=== PATIENT | female | born 2005 | race Caucasian/White ===

== ENCOUNTER 2024-12-06 21:13 | Emergency (ER) | payer BC, SELFPAY ==
[2024-12-06 21:39] VITALS: BP 126/63; PULSE 76; RESP 16; TEMP 36.9; O2SAT 100; BMI 25.6
[2024-12-06 22:57] LABS: MANUAL DIFF FLAG NO
[2024-12-06 22:58] LABS: Hematocrit 33.5 % (37.0-47.0); Hemoglobin 12.5 g/dl (12.0-16.0); Imm Gran Abs Auto 0.03 X10*3/uL (0.00-0.03); Imm Gran Pct Auto 0.3 % (0.0-0.4); Lymphocytes Absolute Auto 2.4 X10*3/uL (1.2-4.9); Mean Corpuscular HGB Conc 37.3 g/dl (31.0-35.0); Mean Corpuscular Hemoglobin 31.3 pg (27.0-33.0); Mean Corpuscular Volume 84.0 fL (80.0-98.0); NRBC Abs Auto 0.000 X10*3/uL (0.0-0.012); NRBC Pct Auto 0.0 /100WBC (0.0-0.2); Platelet Count 263 X10*3/uL (160-400); Red Blood Count 3.99 X10*6/uL (4.20-5.50); White Blood Count 9.9 X10*3/uL (4.8-10.8)
[2024-12-06 23:17] LABS: Alanine Aminotransferase 7 U/L (0-31); Albumin Level 4.5 g/dL (3.5-5.0); Alkaline Phosphatase 49 U/L (39-117); Anion Gap 12 (12-20); Aspartate Amino Transferase 15 U/L (5-31); Blood Urea Nitrogen 5 mg/dL (9-16); Calcium 8.9 mg/dL (8.4-10.2); Carbon Dioxide 22 mmol/L (22-29); Chloride 109 mmol/L (96-108); Creatinine Clr Calc Pharmacy 125.6; Estimated Glomerular Filt Rate > 60; Potassium 3.3 mmol/L (3.3-5.1); Sodium 140 mmol/L (135-145); Total Protein 6.7 g/dL (6.5-8.0)
[2024-12-07 00:13] VITALS: BP 127/71; PULSE 65; RESP 18; TEMP 36.7; O2SAT 99
[2024-12-07 00:15] LABS: COVID-19 Test Negative (Negative); IDNOW Serial# 6674DD1D
--- OUTSIDE RECORDS SUMMARY | 2024-12-07 01:25 | XMS_ITS | Clinical Summary ---
Author Organization [facility] Address [address] [place] [address] Care Team Providers Care Die Turner Name Role Phone Steffanie Woods MD Primary Care Provider [phone] Source Comments IMPORTANT WARNING: This document is intended for the use of the person [facility] to which it is addressed and may contain information that is privilegedand confidential, the disclosure of which is governed by applicable law. If youare not the intended recipient, or the employee or agent responsible to deliverit to the intended recipient, you are notified that any dissemination,distribution or copying of this information is STRICTLY PROHIBITED. If you havereceived this communication in error, please immediately notify us by telephoneat [phone] and return this original message or destroy it.[facility] Allergies No known active allergies Medications No known medications Active Problems Problem Noted Date Diagnosed Date History of strabismus surgery 11/22/2014 Overview (11/22/2014): BMRc 6.0mm Esotropia 09/26/2014 Overview (01/03/2015): ICD10 Update Resolved Problems Problem Noted Date Diagnosed Date Resolved Date Ptosis of eyelid 05/23/2014 11/21/2014 Overview (05/23/2014): Mild ptosis may be residual. Social History Tobacco Use Types Packs/Day Years Used Date Smoking Tobacco: Never Alcohol Use Standard Drinks/Week Comments No 0 (1 standard drink = 0.6 oz pur e alcohol) Comments No Sex and Gender Information Value Date Recorded Sex Assigned at Not on file Legal Sex Female 1:43 PM PST Gender Identity Not on file Sexual Orientation Not on file Last Filed Vital Signs Vital Sign Reading Time Taken Comments Blood Pressure 120/81 11/22/2014 1:45 PM PDT Pulse 90 11/22/2014 2:45 PM PDT Temperature 36.3 C (97.3 F) 11/22/2014 1:24 PM PDT Respiratory Rate 14 11/22/2014 1:30 PM PDT Oxygen Saturation 99% 11/22/2014 2:45 PM PDT Inhaled Oxygen Concentration - - Weight 35.6 kg (78 lb 7.7 oz) 11/22/2014 11:01 A M PDT Height 132.1 cm (4' 4 ) 11/22/2014 11:01 AM PDT Body Mass Index 20.41 11/22/2014 11:01 AM PDT Plan of Treatment Health Maintenance Due Date Last Done Comments COVID-19 Vaccine(Tracks prim zak and booster doses, not sup/immunocomp) (2023- season) [address] [place] [address] Care Teams Die Turner Relationship Specialty [place] [address] [place] [address] PCP - General Pediatrics 05/16/14 Additional Source Comments Request medical records from [facility] directly by faxing your request to . Please call for additional information and assistance.[facility]
--- OUTSIDE RECORDS SUMMARY | 2024-12-07 01:25 | XMS_ITS | Encounter Summary ---
Author Organization [facility] Address [address] [place] [place] [address] Care Team Providers Care Hull Inspector Name Role Phone Purnima Torres (Kisha) D.ONickie Primar y Care Provider Johnny Carpenter M.D., M.D. Primary Care Provi lauren Unavailable Reason for Visit * Reason Comments PERSON UNDER INVESTIGATION Encounter Details Date Type Department Care Team (Late st Contact Info) Description 08/28/2021 Orders Only PMED [address] [place], [place] [id number] Waldo Anne), M.D. [address] [place] [address] COVID-19 DISEASE, PERSON UNDER INVESTIGATION (Primary Dx) Social History Tobacco Use Types Packs/Day Years Used Date Smoking Tobacco: Never Smokeless Tobacco: Never Alcohol Use Standard Drinks/Week Comments Not Asked 0 (1 standard drink = 0.6 oz pur e alcohol) Substance Use Types Use/Week Comments Not Asked Sex and Gender Information Value Date Recorded Sex Assigned at Not on file Gender Identity Not on file Sexual Orientation Not on file documented as of this encounter Plan of Treatment Not on file documented as of this encounter Visit Diagnoses Diagnosis COVID-19 DISEASE, PERSON UNDER INVESTIGATION- Primary documented in this encounter Care Teams Hull Inspector Relationship Specialty Start Date End Date Purnima Torres), D.O. [address] [place] [phone] PCP - General 10/08/17 05/25/22 Johnny Carpenter M.D., [place] [address] PCP - General 12/09/22 documented as of this encounter
--- OUTSIDE RECORDS SUMMARY | 2024-12-07 01:25 | XMS_ITS | Clinical Summary ---
Author Organization [facility] Address [address] [place] [address] Care Team Providers Care Boiler Mechanic Name Role Phone Johnny Carpenter M.D., M.D. Primary Care Provi lauren Unavailable Source Comments NOTE: The information displayed by Care Everywhere is extracted from the complete medical record and may not identify all current or past patient conditions.[facility] Allergies Active Allergy Reactions Criticality Noted Date Comments Penicillins Class 01/11/2019 Medications Medication Sig Dispensed Refills Start Date End Date Status tretinoin (RETIN-A) 0.025 % Top CreaIndications:AC NE Apply to affected area(s) daily at bedtime 20 g 3 08/25/2023 08/24/2025 Active Clindamycin Phosphate (CLEOCIN) 1 % Top SolnIndications:AC NE Apply to affected area(s) daily 60 mL 3 08/25/2023 08/24/2025 Active FLUoxetine (PROZAC) 10 mg Oral CapIndications:MED ICATION REFILL Take 1 capsule by mouth daily Need to take it with 20 mg capsule 100 capsule 1 04/26/2024 04/26/2026 Active FLUoxetine (PROZAC) 20 mg Oral CapIndications:MED ICATION REFILL Take 1 capsule by mouth daily Need to take with 10 mg capsule 100 capsule 1 04/26/2024 04/26/2026 Active Active Problems Patient Care Coordination No te Formatting of this note migh t be different from the original. APPROVED BY [employer]OXI Problem Noted Date Diagnosed Date HX OF STRABISMUS SURGERY 09/03/2016 SCOLIOSIS, UNSPECIFIED TYPE AND SITE 11/06/2014 Resolved Problems Problem Noted Date Diagnosed Date Resolved Date LEFT EYELID PTOSIS 05/08/2014 7 LEFT ESOTROPIA 05/08/2014 09/03/2016 HEALTHY CHILD 12/04/2012 06/10/2019 Encounters Date Type Department Care Team Description 11/15/2024 TELEPHONE - / PSYCH CALL CENTER [facility] [address] [place] [address] Psychiatry, Generic Provider - INTAKE (INITIAL VISIT) 11/12/2024 Telephone [facility] [address] [place] [address] Johnny Carpenter), MSadiq 11/11/2024 11:10 AM PDT Office Visit [facility] [address] [place] [address] Jhonny Carpenter), MSadiq ROUTINE ADULT HEALTH CHECK UP EXAM; SCREENING FOR STI; UNSPECIFIED ANXIETY; ELECTRONIC NICOTINE DELIVERY SYSTEM USER; CANNABIS USE COUNSELING 11/11/2024 TELEPH[facility] [address] [facility] [address] [address] Bang Moyer ([facility]), M.F.T. SCREENING 11/11/2024 Abstract [facility] [address] [place] [address] Flaca Peralta M.D., MSadiq ADMINISTRATIVE ENCOUNTER FOR OUTSIDE RECORDS REVIEW from Last 3 Months Immunizations Name Administration Dates Next Due COVID-19 mRNA LNP-S, bivalen t PF 12yrs-adult ([employer]), 30mcg/0.3mL 01/23/2022 COVID-19 mRNA, LNP-S, PF ([email or web address]) PURPLE CAP 04/01/2021,07/24/2020,07/03/2020 DTaP (Diphtheria, Tetanus, a cellular Pertussis) 07/14/2008,04/17/2005 [id number] (Diphtheria, Te tanus, acellular Pertussis, Hepatitis B, Polio) 2004,2004,2004 HAV ped (Hepatitis A) 10/14/2005 HAV ped/adol 2 dose darci (Hepatitis A) 06/02/2006 HBV ped/adol, 3dose darci (Hepatitis B) 2004 HIB PRP-OMP (Haemophilus influenzae b) 6,2004,2004 HPV9 (Human Papillomavirus) 9 valent 08/19/2016, 09/07/2015 INF (Influenza attenuated vi bell, intranasal) 01/21/2012,01/06/2010,01/14/2009,11/05 INF 2-49yrs (flumist quadriv alent) (influenza attenuated virus, live, intranasal) 01/26/2015,01/18/2014,01/22/2013 INF [id number] (Influenza H1N1- 09 live attenuated, intranasal) 02/03/2009 INFS Pres Free 6mos-Adult (F lulaval Quadrivalent) (Influenza) 01/23/2022,01/03/2018,03/26/2017 INFS pres free 6mos-adult (F luarix quadrivalent) (influenza) 02/15/2020,01/11/2019 INFS pres free 6mos-adult (F lucelvax quadrivalent) (influenza) 04/01/2021 INFS pres free 6mos-adult (F lulaval trivalent) (influenza) 04/26/2024 INFS pres free 6mos-adult (F luzone quadrivalent) (influenza) 04/26/2023 INFs (Influenza split virus ). 02/21/2011 INFs 3yrs-adult (FLUZONE Peyman drivalent) (Influenza) 01/16/2016 INFs pres free 6-35m (Influenza) 007,02/11/2006,02/28/2005,01/04 MENACWY (MENVEO) (MENINGOCOC NUBIA OLIGOSACCHARIDE ACWY-135) 09/17/2020,09/07/2015 MMR (Measles, Mumps, Rubella) 07/14/2008, 006 PCV (Pneumococcal conjugate, pneumonia) 04/17/2005,2004,2004,04/2004 DILLAN-IPV (Polio, Inactivated virus) 07/14/2008 Tdap (ADACEL) (Tetanus, diph theria, acellular pertussis) 09/07/2015 BARBARA (Varicella, chickenpox) 07/14/2008, 6 Social History Tobacco Use Types Packs/Day Years Used Date Smoking Tobacco: Never Smokeless Tobacco: Never Tobacco Cessation:Counseling Given: Not Answered Alcohol Use Standard Drinks/Week Comments Not Asked 0 (1 standard drink = 0.6 oz pur e alcohol) Substance Use Types Use/Week Comments Yes Cannabis - Smoke Sex and Gender Information Value Date Recorded Sex Assigned at Not on file Gender Identity Not on file Sexual Orientation Not on file Last Filed Vital Signs Vital Sign Reading Time Taken Comments Blood Pressure 103/59 11/11/2024 11:23 AM PDT Pulse 91 11/11/2024 11:23 AM PDT Temperature 36.8 C (98.2 F) 11/11/2024 11:23 AM PDT Respiratory Rate 15 11/11/2024 11:23 AM PDT Oxygen Saturation 98% 11/11/2024 11:23 AM PDT Inhaled Oxygen Concentration - - Weight 72.8 kg (160 lb 7.9 oz) 11/11/2024 11:23 AM PDT Height 166.5 cm (5' 5.55 ) 11/11/2024 11:23 AM P DT Body Mass Index 26.26 11/11/2024 11:23 AM PDT Plan of Treatment Health Maintenance Due Date Last Done Comments IMM INFLUENZA (6 MO AND OLDE R) (#1) 12/05/2024 04/26/2024, 04/26/2023, 01/23/2022, Additional history exists IMM DTAP,TDAP,TD (42 DAYS-12 0 YRS) (7 - Td or Tdap) 09/06/2025 09/07/2015, 07/14/2008, 04/17/2005, Additional history exists CHLAMYDIA SCREENING 16-24 YRS 11/11/2025 11/11/2024 IMM HPV (9-26 YRS) Completed 08/19/2016, 09/07/2015 Procedures Procedure Name Priority Date/Time Associated Diagnosis Comments CHLAMYDIA + GC, URINE, HEIDE Routine 11/11/2024 1:03 PM PDT SCREENING FOR STI TSH Routine 11/11/2024 12:30 PM PDT UNSPECIFIED ANXIETY CBC NO DIFFERENTIAL Routine 11/11/2024 1 2:30 PM PDT ROUTINE ADULT HEALTH CHECK UP EXAM ALT Routine 11/11/2024 12:30 PM PDT ROUTINE ADULT HEALTH CHECK UP EXAM CREATININE Routine 11/11/2024 12:30 PM PDT ROUTINE ADULT HEALTH CHECK UP EXAM LIPID PANEL Routine 11/11/2024 12:30 PM PDT ROUTINE ADULT HEALTH CHECK UP EXAM HEMOGLOBIN A1C, SCREENING OR PREDIABETIC MONITORING Routine 11/11/2024 12:30 PM PDT ROUTINE ADULT HEALTH CHECK UP EXAM HCV ANTIBODY W REFLEX TO VIRAL LOAD AND GENOTYPE Routine 11/11/2024 12:30 PM PDT SCREENING FOR STI HEPATITIS B VIRUS SURFACE ANTIGEN (HBSAG) W REFLEX TO VIRAL LOAD Routine 11/11/2024 12:30 PM PDT SCREENING FOR STI SYPHILIS ANTIBODY SCREEN, IMMUNOASSAY Routine 11/11/2024 12:30 PM PDT SCREENING FOR STI HIV SCREEN (HIV AG, HIV 1, 2 AB), QUALITATIVE Routine 11/11/2024 12:30 PM PDT SCREENING FOR STI from Last 3 Months Results * CHLAMYDIA + GC, URINE, HEIDE (11/11/2024 1:03 PM PDT) CHLAMYDIA TRACHOMATIS, URINE, QUALITATIVE, HEIDE Negative Negative [facility] NEISSERIA GONORRHOEAE, URINE, QUALITATIVE, HEIDE Negative Negative [facility] Comment: Positive: Target DNA detected. Consider testing for HIV and other STDs. Negative: Target DNA not detected. Repeat if clinically indicated. Invalid: Unable to determine the presence or absence of target DNA. Repeat if clinically indicated. Note: For positive Neisseria gonorrhoeae result, the treating provider is responsible for reporting to the public health department. Test of cure for chlamydial infection is not recommended, except for individuals, who should be tested approximately 4 or more weeks after therapy completion. Interpret test of cure results accordingly. URINE 11/11/2024 1:03 PM PDT Narrative [facility] - 11/11/2024 11:45 PM PDT [facility] ACCN: [id number] Johnny Carpenter M.D. VIROLOGY Performing Organization Address [facility] de Phone Number [facility] [address] [place] [address] * HEPATITIS B VIRUS SURFACE ANTIGEN (HBSAG) W REFLEX TO VIRAL LOAD (11/11/2024 12:30 PM PDT) HEP B SURFACE AG Nonreactive Nonreactive [facility] BLOOD / Unknown 11/11/2024 1 2:30 PM PDT Narrative [facility] - 11/11/2024 6:01 PM PDT [facility] ACCN: [id number] Johnny Carpenter M.D. IMMUNOLOGY Performing Organization Address [facility] de Phone Number [facility] [address] [place] [address] * LIPID PANEL (11/11/2024 12:30 PM PDT) CHOLESTEROL 178 <=199 mg/dL [facility] Comment: Please review results carefully for any changes to reference ranges (indicated by R superscript). Deployment of new chemistry analyzers is occurring across [facility] through 2026. TRIGLYCERIDE 80 <=149 mg/dL [facility] Comment: Please review results carefully for any changes to reference ranges (indicated by R superscript). Deployment of new chemistry analyzers is occurring across [facility] through 2026.Note that if triglycerides (TG) are sufficiently high, then direct LDL (if TG>1300 mg/dL) or HDL (if TG>2000 mg/dL) measurements may not be valid. HDL 74 >=40 mg/dL [facility] Comment: Please review results carefully for any changes to reference ranges (indicated by R superscript). Deployment of new chemistry analyzers is occurring across [facility] through 2026. LDL CALCULATED 89 <=99 mg/dL [facility] CHOLESTEROL/HIGH DENSITY LIPOPROTEIN 2.4 <=3.9 [facility] Comment:See [employer]Net for more information. CHOLESTEROL, NON-HDL 104 mg/dL [facility] Comment:NonHDL targets are 3 0 mg/dL higher than LDL targets. BLOOD / Unknown 11/11/2024 1 2:30 PM PDT Narrative [facility] - 11/11/2024 7:03 PM PDT [facility] ACCN: [id number] FASTING? YES Johnny Barrios) Jayden Freire SERUM CHEMI STRY Performing Organization Address [facility] de Phone Number [facility] [address] [place] [address] * HIV SCREEN (HIV AG, HIV 1, 2 AB), QUALITATIVE (11/11/2024 12:30 PM PDT) HIV 1+2 AB+[id number] AG, CLA Nonreactive Nonreactive [facility] Comment: Please see below for interpretive criteria: NON-REACTIVE: HIV Antigen and antibodies not detected; the patient remains susceptible - patients at behavioral risk should receive counseling. If early infection is suspected, consider repeat testing in 6-8 weeks. REACTIVE: HIV-1/2 Confirmatory Test to Follow. The HIV-1/2 confirmatory test result is needed in order to determine whether or not the patient is truly positive for HIV-1 or HIV-2. BLOOD / Unknown 11/11/2024 1 2:30 PM PDT Narrative [facility] - 11/11/2024 6:00 PM PDT [facility] ACCN: [id number] Johnny Carpenter M.D. IMMUNOLOGY Performing Organization Address [facility] Co de Phone Number [facility] [address] [place] [address] * HCV ANTIBODY W REFLEX TO VIRAL LOAD AND GENOTYPE (11/11/2024 12:30 PM PDT) HEPATITIS C VIRUS AB,SER,QL Nonreactive Nonreactive [facility] Comment: Please see below for interpretive criteria NON-REACTIVE: Antibodies to HCV not detected. A non-reactive response may be seen up to 9 weeks after the onset of infection. EQUIVOCAL: Antibodies to HCV may or may not be present. If clinically warranted, consider obtaining an additional specimen in 6-9 weeks for re-testing. REACTIVE: Presumptive evidence of antibodies to HCV. Viral load +/- genotype testing will automatically be performed. BLOOD / Unknown 11/11/2024 1 2:30 PM PDT Narrative [facility] - 11/11/2024 6:01 PM PDT [facility] ACCN: [id number] Johnny Barrios) Jayden Freire IMMUNOLOGY Performing Organization Address [facility] de Phone Number [facility] [address] [place] [address] * (ABNORMAL) HEMOGLOBIN A1C, SCREENING OR PREDIABETIC MONITORING (11/11/2024 12:30 PM PDT) HGBA1C% 4.4(L) 4.6 - 5.6 % [facility] Comment: HbA1c may be misleadingly low and unsuitable to diagnose diabetes in certain clinical settings. A1c may be particularly difficult to interpret when glycemic control is rapidly deteriorating (gestational diabetes, type 1 diabetes onset) or with conditions that affect red blood cell lifespan (e.g., significant anemia, G6PD deficiency, hemoglobinopathies, HIV, etc.). In such circumstances, GLUCOSE, FASTING or 2 HR POST 75 GM PO GLUCOSE may be used for diagnosis. For women, GLUCOSE TOLERANCE TEST, 3 HR GESTATIONAL DIABETES; or GLUCOSE TOLERANCE TEST, 2 HR, GESTATIONAL DIABETES is preferred. BLOOD / Unknown 11/11/2024 1 2:30 PM PDT Narrative [facility] - 11/11/2024 5:24 PM PDT [facility] ACCN: [id number] Johnny Barrios) Jayden Freire SERUM CHEMI STRY Performing Organization Address [facility] de Phone Number [facility] [address] [place] [address] * SYPHILIS ANTIBODY SCREEN, IMMUNOASSAY (11/11/2024 12:30 PM PDT) TREPONEMA PALLIDUM AB, EIA Nonreactive Nonreactive [facility] BLOOD / Unknown 11/11/2024 1 2:30 PM PDT Narrative [facility] - 11/11/2024 6:00 PM PDT [facility]N: [id number] Johnny Carpenter M.D. IMMUNOLOGY Performing Organization Address [facility] Co de Phone Number [facility] [address] [place] [address] * ALT (11/11/2024 12:30 PM PDT) ALT 9 <=41 U/L [facility] Comment: Please review results carefully for any changes to reference ranges (indicated by R superscript). Deployment of new chemistry analyzers is occurring across [facility] through 2026. BLOOD / Unknown 11/11/2024 1 2:30 PM PDT Narrative [facility] - 11/11/2024 7:03 PM PDT [facility]N: [id number] Johnny Carpenter M.D. SERUM CHEMI STRY Performing Organization Address [facility] de Phone Number [facility] [address] [place] [address] * TSH (11/11/2024 12:30 PM PDT) TSH 2.11 0.35 - 4.00 mcIU/mL [facility] BLOOD / Unknown 11/11/2024 1 2:30 PM PDT Narrative [facility] - 11/11/2024 6:05 PM PDT [facility]N: [id number] Johnny Carpenter M.D. ENDOCRINOLO GY Performing Organization Address [facility] Co de Phone Number [facility] [address] [place] [address] * CREATININE (11/11/2024 12:30 PM PDT) [facility] CREATININE 0.71 0.57 - 1.11 mg/dL [facility] Comment: Please review results carefully for any changes to reference ranges (indicated by R superscript). Deployment of new chemistry analyzers is occurring across [facility] through 2026. EGFR, CREATININE-BASED FORMULA (CKD-EPI 2020) >120 >=60 mL/min/BS A [facility] Comment: GFR estimate is by the CKD-EPI 2020 equation which uses age, sex, and serum creatinine. GFR estimate is less reliable if on dialysis or if acute kidney injury. Additional advice for the provider is available in Renal Failure Risk Assessment below. CKD Categorization by GFR & ACR (urine Albumin/Creatinine Ratio) GFR >3 months ACR <30(A1) ACR 30-<300(A2) ACR 300+(A3) >=90 CKD1 A2 or * CKD1 A3 60-<90 CKD2 A2 or * CKD2 A3 45-<60 CKD3a A1 or * CKD3a A2 CKD3 A3 30-<45 CKD3b A1 CKD3b A2 CKD3 A3 15-<30 CKD4 A1 CKD4 A2 CKD4 A3 <15 CKD5 A1 CKD5 A2 CKD5 A3 * or may label a bnormal kidney function or p roteinuria as appropriate. BLOOD / Unknown 11/11/2024 1 2:30 PM PDT Narrative [facility] - 11/11/2024 7:03 PM PDT [facility] ACCN: [id number] Johnny Carpenter M.D. SERUM CHEMI STRY [facility] [address] [place] [address] * CBC NO DIFFERENTIAL (11/11/2024 12:30 PM PDT) Pathologist [facility] WBC'S AUTO 8.4 4.0 - 11.0 x1000/mcL [facility], CLINICAL PATHOLOGY [facility] RBC, AUTO 4.98 3.70 - 5.20 Mill/mcL [facility], [facility] PATHOLOGY [facility] HGB 15.2 11.5 - 16.0 g/dL [facility], [facility] HCT, AUTO 43.8 35.0 - 47.0 % [facility], [facility] MCV 88.0 81.0 - 99.0 fL [facility], [facility] PATHOLOGY [facility] MCH 30.5 25.0 - 35.0 pg/cell [facility], CLINICAL PATHOLOGY [facility] MCHC 34.7 30.0 - 35.0 g/dL [facility], [facility] PATHOLOGY [facility] RDW, BLOOD 12.5 11.5 - 16.0 % [facility], [facility] PATHOLOGY [facility] PLATELETS, AUTOMATED COUNT [id number] 130 - 400 x1000/mcL [facility], [facility] BLOOD / Unknown 11/11/2024 1 2:30 PM PDT Narrative [facility], [facility] - [place] - 11/11/2024 11:36 PM PDT [facility]N: [id number] Johnny Carpenter M.D. HEMATOLOGY [facility], [facility] [address] [place] [address] from Last 3 Months Care Teams Boiler Mechanic Relationship Specialty Start Date End Date Johnny Carpenter), [place] [address] PCP - General 12/09/22
--- NOTE | 2024-12-07 01:39 | ED_ITS ---
HPI - General Adult General Chief complaint: Nausea/Vomiting/Diarrhea Stated complaint: Vomiting/abdominal pain Time Seen by Provider: 12/06/24 23:27 Source: patient Limitations: no limitations History of Present Illness ED Provider: Genesis Blanco PA-C HPI narrative: 19-year-old otherwise healthy female presents with nausea vomiting diarrhea x3 days. Patient states she has trialed from [place] to attend school. Denies sick contacts with similar symptoms. Denies travel out of the country, recent hospitalization or use of antibiotics. Patient having vague abdominal discomfort that she can not describe. No known fever, no concurrent cough or cold symptoms. Related Data Previous Rx's ?Medication ?Instructions ?Recorded dicyclomine 20 mg tablet 20 mg PO TID PRN abdominal p ain 12/07/24 #10 tabs ondansetron 4 mg disintegrating 4 mg PO Q8H PRN nausea and 12/07/24 tablet vomiting #10 tabs Allergies Allergy/AdvReac Type Severity Reaction Status Date / Time Penicillins Allergy Hives Verified 12/06/24 21:44 Review of Systems 2 Review of Systems: Yes all other systems are reviewed and are negative Constitutional: Constitutional: Denies fatigue and Denies fever(s) Cardiovascular: Cardiovascular: Denies chest pain and Denies dyspnea Respiratory: Respiratory: Denies cough and Denies dyspnea Gastrointestinal: Gastrointestinal: Reports GI cramping, Reports diarrhea, Reports nausea and Reports vomiting Endocrine: Endocrine: Denies fatigue PMFSH Past Medical History Attestation statement: The following information was validated with the patient. Social History Social History Smoked in Last 30 Days: Yes Use of substances other than those prescribed or required for medical reasons: Yes Substance Use Type: Marijuana Advance Directives: No Advance Directives Information Provided: Yes Patient : No Physical Exam ED Vital Signs: Vital Signs - 24 hr 12/06/24 21:39 12/07/24 00:13 12/07/24 01:42 Temperature 98.5 F 98.0 F 97.7 F Pulse Rate 76 65 70 Respiratory Rate 16 18 18 Blood Pressure 126/63 127/71 106/64 Pulse Oximetry 100 99 100 Oxygen Delivery Method Room Air Room Air Room Air BMI result Body Mass Index 25.6 Const Other: Alert well-appearing Orientation/consciousness: patient oriented x3 Resp Effort & Inspection: normal respiratory effort Cardio Other: Normal peripheral perfusion GI Other: Abdomen is soft, nondistended nontender no guarding with deep palpation Skin Other: Warm dry no rash Neuro General: patient oriented x3, gait normal, no focal motor deficits and CN's II- XI intact bilaterally Psych Other: Cooperative Medications Administered Discontinued Medications Generic Name Dose Route Start Last Admin Trade Name Alyssa PRN Reason Stop Dose Admin Dicyclomine HCl 20 mg 12/07/24 00:29 12/07/24 00:50 Dicyclomine Hcl 10 Mg Capsule PO 12/07/24 00:30 20 mg ONCE ONE Administration Sodium Chloride 1,000 mls @ 999 mls/hr 12/06/24 23:45 12/07/24 00:51 Ns IV 12/07/24 00:45 Infused .Q1H1M PARKER Infusion Ondansetron HCl 4 mg 12/06/24 23:35 12/06/24 23:46 Ondansetron Hcl 4 Mg/2 Ml Vial IVPUSH 12/06/24 23:36 4 mg ONCE ONE Administration Ondansetron HCl 4 mg 12/07/24 01:33 12/07/24 01:40 Ondansetron Hcl 4 Mg/2 Ml Vial IVPUSH 12/07/24 01:34 4 mg ONCE ONE Administration Medical Decision Making Medical Decision Making [facility] Narrative: 19-year-old otherwise healthy female presents with nausea vomiting diarrhea x3 days. Patient states she has trialed from [place] to attend school. Denies sick contacts with similar symptoms. Denies travel out of the country, recent hospitalization or use of antibiotics. Patient having vague abdominal discomfort that she can not describe. No known fever, no concurrent cough or cold symptoms. No chronic issues History: Per patient I have considered the following differential diagnoses: Traveler's diarrhea, C diff, viral gastroenteritis, diverticulitis Plan: This is likely viral gastroenteritis, her abdominal exam was benign, her screening labs are unremarkable. She also has no risk factors for C diff or traveler's diarrhea. We will be giving supportive care and adding on a COVID test. I have independently reviewed the following tests: Labs: No leukocytosis, not anemic, no electrolyte abnormality, COVID negative, not Differential Diagnosis Differential Diagnoses: The differential diagnosis associated with the presentation includes See medical decision making Admission/Observation Consideration of admission/observation: Escalation of care including admission/observation considered Not applicable Lab Data [facility] Lab Attestation statement: I reviewed the patient's lab results. 12/06/24 22:54 12/06/24 22:54 Labs: Lab Results 12/06/24 12/06/24 Range/Units 22:54 23:41 WBC 9.9 (4.8-10.8) X10*3/uL RBC 3.99 L (4.20-5.50) X10*6/uL Hgb 12.5 (12.0-16.0) g/dl Hct 33.5 L (37.0-47.0) % MCV 84.0 (80.0-98.0) fL MCH 31.3 (27.0-33.0) pg MCHC 37.3 H (31.0-35.0) g/dl RDW 12.2 (11.0-16.0) % Plt Count 263 (160-400) X10*3/uL MPV 9.1 L (9.4-12.3) fL Immature Gran % (Auto) 0.3 (0.0-0.4) % Neut % (Auto) 65.7 (45-73) % Lymph % (Auto) 24.0 (20-40) % Ballard % (Auto) 8.5 (2-11) % Eos % (Auto) 0.8 (0-4) % Baso % (Auto) 0.7 (0-2) % Lymph # (Auto) 2.4 (1.2-4.9) X10*3/uL Ballard # (Auto) 0.8 (0.1-1.2) X10*3/uL Eos # (Auto) 0.1 (0.0-0.4) X10*3/uL Baso # (Auto) 0.1 (0.0-0.2) X10*3/uL Abs Immat Gran (auto) 0.03 (0.00-0.03) X10*3/uL Absolute Neuts (auto) 6.5 (2.0-8.3) x10*3/uL Absolute Nucleated RBC 0.000 (0.0-0.012) X10*3/uL Nucleated RBC % (auto) 0.0 (0.0-0.2) /100WBC Sodium 140 (135-145) mmol/L Potassium 3.3 (3.3-5.1) mmol/L Chloride 109 H (96-108) mmol/L Carbon Dioxide 22 (22-29) mmol/L Anion Gap 12 (12-20) BUN 5 L (9-16) mg/dL Creatinine 0.70 (0.5-1.4) mg/dL Estim Creat Clear Calc 125.6 Estimated GFR > 60 Random Glucose 94 (60-115) mg/dL Calcium 8.9 (8.4-10.2) mg/dL Total Bilirubin 0.7 (0.0-1.0) mg/dL AST 15 (5-31) U/L ALT 7 (0-31) U/L Alkaline Phosphatase 49 (39-117) U/L Total Protein 6.7 (6.5-8.0) g/dL Albumin 4.5 (3.5-5.0) g/dL Beta HCG, Quant < 2 mIU/mL COVID-19 (HEIDE) Negative (Negative) COVID-19 Clin Com See Note Discharge Plan Discharge Clinical Impression: Gastroenteritis Patient Disposition: Home, Self-Care Instructions: Gastroenteritis (ED) Additional Instructions: All of your screening labs were normal including a COVID swab. You likely have viral gastroenteritis. See home care instructions. Viral illnesses are self- limiting. Uses Zofran as needed for nausea, use the dicyclomine as needed for abdominal cramping/diarrhea. Follow up with the Health Services as needed. Return precautions for onset of the of severe abdominal pain, fever, or worsening symptoms. Prescriptions: New ondansetron 4 mg tablet,disintegrating 4 mg PO Q8H PRN (Reason: nausea and vomiting) Qty: 10 0RF dicyclomine 20 mg tablet 20 mg PO TID PRN (Reason: abdominal pain) Qty: 10 0RF Print Language: Cypriot
[2024-12-07 01:42] VITALS: BP 106/64; PULSE 70; RESP 18; TEMP 36.5; O2SAT 100
[2024-12-07 02:10] VITALS: BP 106/64; PULSE 70; RESP 18; TEMP 36.5; O2SAT 100
== END 2024-12-07 02:12 | disposition home or self-care (01) ==
PROVIDERS: Physician Assistant Medical; Emergency Provider Emergency Medicine
DX: K52.9 Noninfective gastroenteritis and colitis, unspecified (principal)
CPT/HCPCS: 36415; 80053; 84702; 85025; 87635; 96361; 96374; 96376; 99284; J2405

== ENCOUNTER 2024-12-20 08:26 | Emergency (ER) | payer BC, OTHER, SELFPAY ==
--- NOTE | ~2024-12-20 | CT_ITS ---
EXAMINATION: CT HEAD WITHOUT IV CONTRAST HISTORY: headache AM vomiting. TECHNIQUE: Unenhanced helical CT of the head was performed per standard departmental protocol. Coronal and sagittal reformats of the head were also evaluated. One or more of the following techniques was used for dose reduction: Automated exposure control, adjustment of the mA and/or kV according to patient size, use of iterative reconstruction technique. DLP: 712 mGy-cm COMPARISON: There are no prior studies available for comparison. FINDINGS: BRAIN: The brain parenchyma is unremarkable. There is normal lyn/white differentiation. The ventricular system is normal in size and configuration. There is no mass effect or midline shift. No intra- or extra-axial fluid collections are identified. SINUSES: The visualized paranasal sinuses are clear. The mastoid air cells and middle ear cavities are well pneumatized. ORBITS: The visualized orbits are unremarkable. BONES/SOFT TISSUES: The extracranial soft tissues are unremarkable. The calvarium is intact. No suspicious lytic or sclerotic lesions. CT/CT head/brain wo IV con IMPRESSION: Unremarkable unenhanced head CT. Electronically signed by: Vicente Saini MD 12/20/2024 10:45 AM EDT
[2024-12-20 08:39] VITALS: BP 107/58; PULSE 65; RESP 16; TEMP 36.1; O2SAT 100; BMI 24.6
[2024-12-20 09:02] LABS: MANUAL DIFF FLAG NO
[2024-12-20 09:04] LABS: Appearance Urine Clear; Glucose Urine UA Negative (Negative); PH 6.0 (5.0-9.0); Specific Gravity - Urine >= 1.030 (1.005-1.025); UMIC TRIGGER UACC YES
[2024-12-20 09:05] LABS: Hematocrit 38.0 % (37.0-47.0); Hemoglobin 13.7 g/dl (12.0-16.0); Imm Gran Abs Auto 0.03 X10*3/uL (0.00-0.03); Imm Gran Pct Auto 0.3 % (0.0-0.4); Lymphocytes Absolute Auto 1.1 X10*3/uL (1.2-4.9); Mean Corpuscular HGB Conc 36.1 g/dl (31.0-35.0); Mean Corpuscular Hemoglobin 30.6 pg (27.0-33.0); Mean Corpuscular Volume 85.0 fL (80.0-98.0); NRBC Abs Auto 0.000 X10*3/uL (0.0-0.012); NRBC Pct Auto 0.0 /100WBC (0.0-0.2); Platelet Count 270 X10*3/uL (160-400); Red Blood Count 4.47 X10*6/uL (4.20-5.50); White Blood Count 10.8 X10*3/uL (4.8-10.8)
--- NOTE | 2024-12-20 09:25 | PC.NURSE ---
Pt A&O X4 VSS Pt states she has been vomiting every AM. No pain. Also Diarrhea daily X1. No other complaints
[2024-12-20 09:28] LABS: Alanine Aminotransferase 11 U/L (0-31); Albumin Level 5.2 g/dL (3.5-5.0); Alkaline Phosphatase 61 U/L (39-117); Anion Gap 14 (12-20); Aspartate Amino Transferase 19 U/L (5-31); Blood Urea Nitrogen 7 mg/dL (9-16); Calcium 9.8 mg/dL (8.4-10.2); Carbon Dioxide 24 mmol/L (22-29); Chloride 107 mmol/L (96-108); Creatinine Clr Calc Pharmacy 120.4; Estimated Glomerular Filt Rate > 60; Magnesium 2.0 mg/dL (1.6-2.6); Potassium 3.6 mmol/L (3.3-5.1); Sodium 141 mmol/L (135-145); Total Protein 7.8 g/dL (6.5-8.0)
--- NOTE | 2024-12-20 09:36 | ED.NAVMDI ---
HPI - Nausea/Vomiting/Diarrhea General Chief complaint: Nausea/Vomiting/Diarrhea Stated complaint: Nausea/vomiting Time Seen by Provider: 12/20/24 09:13 Source: patient Mode of arrival: ambulatory Limitations: no limitations History of Present Illness ED Provider: GAGANDEEP SOUZA Narrative: 19 yo female with no sig PMH who is a [employer] student. She reports illness of n/v and one diarrhea episode a day about a week ago that resolved. At that time no travel, abx use, sick contacts. She notes it did go away but then has been back again for the last few days. She has n/v and throwing up green bile in the AM. She denies any food ingestions, anyone else vomiting. She has no pain. She went to the [facility] yesterday and they obtained a stool sample. She reports no hx of this. She does smoke THC daily but has not vomited from it in the past. She is not on any medications and was not started on pepcid/PPI. She has no prior abdominal surgeries. She notes her mom is a award clerk and is demanding head CT to look for signs of ICP causing her symptoms. There are no neuro deficits. There is no head trauma. MD elicited complaint: nausea, vomiting and diarrhea Onset (ago): week(s) (2) Description of vomiting: bilious Description of diarrhea: watery Associated nausea: Yes Associated abdominal pain: No Severity: moderate Exacerbating factors: other (morning time) Relieving factors: none Context: marijuana use Associated symptoms: loss of appetite and nausea/vomiting Related Data Previous Rx's ?Medication ?Instructions ?Recorded dicyclomine 20 mg tablet 20 mg PO TID PRN abdominal pain 12/07/24 #10 tabs ondansetron 4 mg disintegrating 4 mg PO Q8H PRN nausea and 12/07/24 tablet vomiting #10 tabs famotidine 20 mg tablet (Pepcid) 20 mg PO DAILY abdominal 12/20/24 discomfort #14 tabs ondansetron 4 mg disintegrating 4 mg PO Q8H PRN nausea and 12/20/24 tablet vomiting #20 tabs Allergies Allergy/AdvReac Type Severity Reaction Status Date / Time Penicillins Allergy Hives Verified 12/20/24 08:41 Review of Systems Review of Systems: Constitutional : No Fever, No Chills, No Fatigue ENT/Mouth : No sore throat, No Rhinorrhea Eyes: No Eye Pain, No Swelling, No Redness Cardiovascular : No Chest Pain, No SOB, No Dyspnea on Exertion Respiratory : No Cough, No Sputum Gastrointestinal : pos Nausea, pos Vomiting, pos Diarrhea, No abdominal Pain Genitourinary : No Dysuria, No Urinary Frequency, No Hematuria, Musculoskeletal : No joint pain, No Myalgias, No Joint Swelling Skin : No Skin Lesions, No rash Neuro : No Weakness, No Numbness, No Dizziness, no Headache All other systems reviewed and are negative Gastrointestinal: Gastrointestinal: Reports nausea PMFSH Past Medical History Attestation statement: The following information was validated with the patient. Source: old records reviewed Medical History (Updated 12/20/24 @ 11:38 by Arelis Degroot DO) No pertinent past medical history Social History Social History Substance Use Type: Marijuana Advance Directives: No Advance Directives Information Provided: Yes Physical Exam Vital Signs: Vital Signs: Last Vital Signs Temp 98.5 F 12/20/24 11:18 Pulse 84 12/20/24 11:18 Resp 16 12/20/24 11:18 BP 132/75 12/20/24 11:18 Pulse Ox 100 12/20/24 11:18 O2 Del Method Room Air 12/20/24 11:18 BMI result Body Mass Index 24.6 Appearance: Alert. Oriented X3. No acute distress. Eyes: Pupils equal, round and reactive to light. ENT: Pharynx normal. Neck: Normal inspection. Neck supple. CVS: Normal heart rate and rhythm. Pulses normal. Respiratory: No respiratory distress. Breath sounds normal. Abdomen: Soft and nontender. No sharp's sign Skin: Skin warm and dry. Normal skin color. Normal skin turgor. Extremities: No lower extremity edema. Neuro: Oriented X 3. No motor deficit. No sensory deficit. Medications Administered Discontinued Medications Generic Name Dose Route Start Last Admin Trade Name Freq PRN Reason Stop Dose Admin Diphenhydramine HCl 25 mg 12/20/24 09:14 12/20/24 09:40 Diphenhydramine Hcl 50 Mg/Ml Vial IVPUSH 12/20/24 09:15 25 mg ONCE ONE Administration Lactated Ringer's 1,000 mls @ 999 mls/hr 12/20/24 09:14 12/20/24 10:50 Lr IV 12/20/24 10:14 Infused .Q1H1M ONE Infusion Metoclopramide HCl 10 mg 12/20/24 09:14 12/20/24 09:42 Metoclopramide Hcl 10 Mg/2 Ml Vial IVPUSH 12/20/24 09:15 10 mg ONCE ONE Administration Medical Decision Making Medical Decision Making [facility] Narrative: healthy 19 yo female here with intemittent AM vomiting and nausea but no pain and really one loose stool a day. Her abdomen is benign doubt appy or biliary colic. She has stool study pending already. Will obtain CT scan of head rule out ICP as the cause of her symptoms. She is afebrile and not toxic appearing. Could be GERD, THC induced, dehydration, , viral syndrome. Differential Diagnosis Differential Diagnoses: The differential diagnosis associated with the presentation includes THC induced emesis, dehydration, Admission/Observation Consideration of admission/observation: Escalation of care including admission/observation considered feels better tolerating PO Lab Data [facility] Lab Attestation statement: I reviewed the patient's lab results. 12/20/24 08:53 12/20/24 08:53 Labs: Lab Results 12/20/24 12/20/24 Range/Units 08:53 08:58 WBC 10.8 (4.8-10.8) X10*3/uL RBC 4.47 (4.20-5.50) X10*6/uL Hgb 13.7 (12.0-16.0) g/dl Hct 38.0 (37.0-47.0) % MCV 85.0 (80.0-98.0) fL MCH 30.6 (27.0-33.0) pg MCHC 36.1 H (31.0-35.0) g/dl RDW 12.3 (11.0-16.0) % Plt Count 270 (160-400) X10*3/uL MPV 9.2 L (9.4-12.3) fL Immature Gran % (Auto) 0.3 (0.0-0.4) % Neut % (Auto) 82.7 H (45-73) % Lymph % (Auto) 10.3 L (20-40) % Mercer % (Auto) 5.7 (2-11) % Eos % (Auto) 0.4 (0-4) % Baso % (Auto) 0.6 (0-2) % Lymph # (Auto) 1.1 L (1.2-4.9) X10*3/uL Mercer # (Auto) 0.6 (0.1-1.2) X10*3/uL Eos # (Auto) 0.0 (0.0-0.4) X10*3/uL Baso # (Auto) 0.1 (0.0-0.2) X10*3/uL Abs Immat Gran (auto) 0.03 (0.00-0.03) X10*3/uL Absolute Neuts (auto) 9.0 H (2.0-8.3) x10*3/uL Absolute Nucleated RBC 0.000 (0.0-0.012) X10*3/uL Nucleated RBC % (auto) 0.0 (0.0-0.2) /100WBC Sodium 141 (135-145) mmol/L Potassium 3.6 (3.3-5.1) mmol/L Chloride 107 (96-108) mmol/L Carbon Dioxide 24 (22-29) mmol/L Anion Gap 14 (12-20) BUN 7 L (9-16) mg/dL Creatinine 0.67 (0.5-1.4) mg/dL Estim Creat Clear Calc 120.4 Estimated GFR > 60 Random Glucose 83 (60-115) mg/dL Calcium 9.8 D (8.4-10.2) mg/dL Magnesium 2.0 (1.6-2.6) mg/dL Total Bilirubin 1.1 H (0.0-1.0) mg/dL AST 19 (5-31) U/L ALT 11 (0-31) U/L Alkaline Phosphatase 61 (39-117) U/L Total Protein 7.8 (6.5-8.0) g/dL Albumin 5.2 H (3.5-5.0) g/dL Lipase 26 (8-78) U/L Beta HCG, Quant < 2 mIU/mL Urine Color Dark Yellow Urine Appearance Clear Urine pH 6.0 (5.0-9.0) Ur Specific [place] >= 1.030 H (1.005-1.025) Urine Protein 100 (2+) H (Neg-Trace) mg/dL Urine Glucose (UA) Negative (Negative) mg/dL Urine Ketones >=160 (Negative) mg/dL Urine Blood Moderate (2+) H (Negative) Urine Nitrite Negative (Negative) Ur Leukocyte Esterase Trace H (Negative) Urine RBC 3-5 H (0-2) /HPF Urine WBC 0-5 (0-5) /HPF Ur Squamous Epith Cells 3-5 (0-2) /HPF Urine Bacteria None Seen (None Seen) Hyaline Casts 3-5 (0-2) /LPF Independent Interpretation I performed an independent interpretation of an: CT Scan (normal ) Radiology Impression Discussion of test interpretation with radiology: I have reviewed the radiologist's reading. Prescription Management I considered prescription management with: Other Discharge Plan Discharge Clinical Impression: Nausea & vomiting Patient Disposition: Home, Self-Care Instructions: Acute Nausea and Vomiting (ED) Additional Instructions: return for worsening symptoms bland diet for 72 hours after eating must remain upright for [address] head was normal you had trace blood in your urine but it was only 3-5 per HPF would repeat in 1 week with your doctor FINDINGS: BRAIN: The brain parenchyma is unremarkable. There is normal lyn/white differentiation. The ventricular system is normal in size and configuration. There is no mass effect or midline shift. No intra- or extra-axial fluid collections are identified. SINUSES: The visualized paranasal sinuses are clear. The mastoid air cells and middle ear cavities are well pneumatized. ORBITS: The visualized orbits are unremarkable. BONES/SOFT TISSUES: The extracranial soft tissues are unremarkable. The calvarium is intact. No suspicious lytic or sclerotic lesions. CT/CT head/brain wo IV con IMPRESSION: Unremarkable unenhanced head CT. Prescriptions: New famotidine [Pepcid] 20 mg tablet 20 mg PO DAILY Qty: 14 0RF ondansetron 4 mg tablet,disintegrating 4 mg PO Q8H PRN (Reason: nausea and vomiting) Qty: 20 0RF No Action ondansetron 4 mg tablet,disintegrating 4 mg PO Q8H PRN (Reason: nausea and vomiting) Qty: 10 0RF dicyclomine 20 mg tablet 20 mg PO TID PRN (Reason: abdominal pain) Qty: 10 0RF Stand Alone Forms: Work/School Release Print Language: Mohawk
[2024-12-20] MEDS: Lactated Ringers 1,000 ML 999 ML IV (09:40)
[2024-12-20 10:33] LABS: Lipase 26 U/L (8-78)
[2024-12-20 11:18] VITALS: BP 132/75; PULSE 84; RESP 16; TEMP 36.9; O2SAT 100
--- OUTSIDE RECORDS SUMMARY | 2024-12-20 11:26 | XMS_ITS | Clinical Summary ---
Author Organization [facility] Address [address] [place] [address] Care Team Providers Care Store Keeper Name Role Phone Steffanie Woods MD Primary Care Provider [phone] Source Comments IMPORTANT WARNING: This document is intended for the use of the person [facility] to which it is addressed and may [...] error, please immediately notify us by telephoneat [phone] and return this original message or destroy it.[facility] Allergies No known active allergies Medications No [...] prim zak and booster doses, not sup/immunocomp) () 12/05/[address] [place] [address] [facility] Address: [address] [address] Care Teams Store Keeper Relationship Specialty [place] [address] [place] [address] PCP - General Pediatrics 05/16/14 Additional Source Comments Request medical records from [facility] directly by faxing your request to . Please call for additional information and assistance.[facility]
--- OUTSIDE RECORDS SUMMARY | 2024-12-20 11:26 | XMS_ITS | Clinical Summary ---
Author Organization [facility] Address [address] [place] [address] Care Team Providers Care Heat Engineering Teacher Name Role Phone Johnny Carpenter M.D., M.D. Primary Care Provi lauren Unavailable Source Comments NOTE: The information displayed by Care Everywhere is extracted from the complete medical record and may not identify all current or past patient conditions.[facility] Allergies Active Allergy Reactions Criticality [...] - / PSYCH CALL CENTER [facility] [address] [place] [address] Psychiatry, Generic Provider - INTAKE (INITIAL VISIT) 11/12/2024 Telephone [facility] [address] [place] [address] Johnny Carpenter), MSadiq 11/11/2024 11:10 AM PDT Office Visit [facility] [address] [place] [address] Johnny Carpenter), MSadiq ROUTINE ADULT HEALTH CHECK UP EXAM; SCREENING FOR STI; UNSPECIFIED ANXIETY; ELECTRONIC NICOTINE DELIVERY SYSTEM USER; CANNABIS USE COUNSELING 11/11/2024 TELEPH[facility] - / [facility] [address] [address] [address] Bang Moyer ([facility]), M.F.T. SCREENING 11/11/2024 Abstract [facility] [address] [place] [address] Flaca Peralta M.D., MSadiq ADMINISTRATIVE ENCOUNTER FOR OUTSIDE RECORDS REVIEW from Last 3 Months Immunizations Name Administration Dates Next Due COVID-19 mRNA LNP-S, bivalen t PF 12yrs-adult ([facility]), 30mcg/0.3mL 01/23/2022 COVID-19 mRNA, LNP-S, PF ([facility]) PURPLE CAP 04/01/2021,07/24/2020,07/03/2020 DTaP (Diphtheria, Tetanus, a cellular Pertussis) 07/14/2008,04/17/2005 [id number] (Diphtheria, Te tanus, acellular Pertussis, Hepatitis B, Polio) 2004,2004,2004 HAV ped (Hepatitis A) 10/14/2005 HAV ped/adol 2 dose darci (Hepatitis A) 06/02/2006 HBV ped/adol, 3dose darci (Hepatitis B) 2004 HIB PRP-OMP (Haemophilus influenzae b) 6,2004,2004 HPV9 (Human Papillomavirus) 9 valent 08/19/2016, 09/07/2015 INF (Influenza attenuated vi bell, intranasal) 01/21/2012,01/06/2010,01/14/2009,11/05 INF 2-49yrs (flumist quadriv alent) (influenza attenuated virus, live, intranasal) 01/26/2015,01/18/2014,01/22/2013 INF D2I3-78 (Influenza H1N1- 09 live attenuated, intranasal) 02/03/2009 [...] CHLAMYDIA TRACHOMATIS, URINE, QUALITATIVE, HEIDE Negative Negative [facility] NEISSERIA GONORRHOEAE, URINE, QUALITATIVE, HEIDE Negative Negative [facility] Comment: Positive: Target DNA detected. Consider [...] accordingly. URINE 11/11/2024 1:03 PM PDT Narrative [facility] - 11/11/2024 11:45 PM PDT [facility] ACCN: [id number] Johnny Carpenter M.D. VIROLOGY Performing Organization Address [facility] de Phone Number [facility] [address] [place] [address] * HEPATITIS B VIRUS SURFACE ANTIGEN (HBSAG) W REFLEX TO VIRAL LOAD (11/11/2024 12:30 PM PDT) HEP B SURFACE AG Nonreactive Nonreactive [facility] BLOOD / Unknown 11/11/2024 1 2:30 PM PDT Narrative [facility] - 11/11/2024 6:01 PM PDT [facility] ACCN: [id number] Johnny Carpenter M.D. IMMUNOLOGY Performing Organization Address [facility] de Phone Number [facility] [address] [place] [address] * LIPID PANEL (11/11/2024 12:30 PM PDT) CHOLESTEROL 178 <=199 mg/dL [facility] Comment: Please review results carefully for any changes to reference ranges (indicated by R superscript). Deployment of new chemistry analyzers is occurring across [facility] through 2026. TRIGLYCERIDE 80 <=149 mg/dL [facility] Comment: Please review results carefully for any changes to reference ranges (indicated by R superscript). Deployment of new chemistry analyzers is occurring across [facility] through 2026.Note that if triglycerides (TG) are sufficiently high, then direct LDL (if TG>1300 mg/dL) or HDL (if TG>2000 mg/dL) measurements may not be valid. HDL 74 >=40 mg/dL [facility] Comment: Please review results carefully for any changes to reference ranges (indicated by R superscript). Deployment of new chemistry analyzers is occurring across [facility] through 2026. LDL CALCULATED 89 <=99 mg/dL [facility] CHOLESTEROL/HIGH DENSITY LIPOPROTEIN 2.4 <=3.9 [facility] Comment:See LabNet for more information. CHOLESTEROL, NON-HDL 104 mg/dL [facility] Comment:NonHDL targets are 3 0 mg/dL higher than LDL targets. BLOOD / Unknown 11/11/2024 1 2:30 PM PDT Narrative [facility] - 11/11/2024 7:03 PM PDT [facility] ACCN: [id number] FASTING? YES Johnny Barrios) Jayden Freire SERUM CHEMI STRY Performing Organization Address [facility] de Phone Number [facility] [address] [place] [address] * HIV SCREEN (HIV AG, HIV 1, 2 AB), QUALITATIVE (11/11/2024 12:30 PM PDT) HIV 1+2 AB+[id number] AG, CLA Nonreactive Nonreactive [facility] Comment: Please see below for interpretive [...] Unknown 11/11/2024 1 2:30 PM PDT Narrative [facility] - 11/11/2024 6:00 PM PDT [facility] ACCN: [id number] Johnny Carpenter M.D. IMMUNOLOGY Performing Organization Address [facility] Co de Phone Number [facility] [address] [place] [address] * HCV ANTIBODY W REFLEX TO VIRAL LOAD AND GENOTYPE (11/11/2024 12:30 PM PDT) HEPATITIS C VIRUS AB,SER,QL Nonreactive Nonreactive [facility] Comment: Please see below for interpretive criteria [...] Unknown 11/11/2024 1 2:30 PM PDT Narrative [facility] - 11/11/2024 6:01 PM PDT [facility] ACCN: [id number] Johnny Barrios) Jayden Freire IMMUNOLOGY Performing Organization Address [facility] de Phone Number [facility] [address] [place] [address] * (ABNORMAL) HEMOGLOBIN A1C, SCREENING OR PREDIABETIC MONITORING (11/11/2024 12:30 PM PDT) HGBA1C% 4.4(L) 4.6 - 5.6 % [facility] Comment: HbA1c may be misleadingly low [...] Unknown 11/11/2024 1 2:30 PM PDT Narrative [facility] - 11/11/2024 5:24 PM PDT [facility] ACCN: [id number] Johnny Barrios) Jayden Freire SERUM CHEMI STRY Performing Organization Address [facility] de Phone Number [facility] [address] [place] [address] * SYPHILIS ANTIBODY SCREEN, IMMUNOASSAY (11/11/2024 12:30 PM PDT) TREPONEMA PALLIDUM AB, EIA Nonreactive Nonreactive [facility] BLOOD / Unknown 11/11/2024 1 2:30 PM PDT Narrative [facility] - 11/11/2024 6:00 PM PDT [facility]N: [id number] Johnny Carpenter M.D. IMMUNOLOGY Performing Organization Address [facility] Co de Phone Number [facility] [address] [place] [address] * ALT (11/11/2024 12:30 PM PDT) ALT 9 <=41 [facility] Comment: Please review results carefully for any changes to reference ranges (indicated by R superscript). Deployment of new chemistry analyzers is occurring across [facility] through 2026. BLOOD / Unknown 11/11/2024 1 2:30 PM PDT Narrative [facility] - 11/11/2024 7:03 PM PDT [facility] ACCN: [id number] Johnny Carpenter M.D. SERUM CHEMI STRY Performing Organization Address [facility] de Phone Number [facility] [address] [place] [address] * TSH (11/11/2024 12:30 PM PDT) TSH 2.11 0.35 - 4.00 mcIU/mL [facility] BLOOD / Unknown 11/11/2024 1 2:30 PM PDT Narrative [facility] - 11/11/2024 6:05 PM PDT [facility] ACCN: [id number] Johnny Carpenter M.D. ENDOCRINOLO GY Performing Organization Address [facility] Co de Phone Number [facility] [address] [place] [address] * CREATININE (11/11/2024 12:30 PM PDT) [facility] CREATININE 0.71 0.57 - 1.11 mg/dL [facility] Comment: Please review results carefully for any changes to reference ranges (indicated by R superscript). Deployment of new chemistry analyzers is occurring across [facility] through 2026. EGFR, CREATININE-BASED FORMULA (CKD-EPI 2020) >120 >=60 mL/min/BS A [facility] Comment: GFR estimate is by the CKD-EPI [...] Unknown 11/11/2024 1 2:30 PM PDT Narrative [facility] - 11/11/2024 7:03 PM PDT [facility] ACCN: [id number] Johnny Carpenter M.D. SERUM CHEMI STRY [facility] [address] [place] [address] * CBC NO DIFFERENTIAL (11/11/2024 12:30 PM PDT) Pathologist [facility] WBC'S AUTO 8.4 4.0 - 11.0 x1000/mcL [facility], CLINICAL PATHOLOGY [facility] RBC, AUTO 4.98 3.70 - 5.20 Mill/mcL [facility], [facility] PATHOLOGY [facility] HGB 15.2 11.5 - 16.0 g/dL [facility], [facility] HCT, AUTO 43.8 35.0 - 47.0 % [facility], [facility] MCV 88.0 81.0 - 99.0 fL [facility], [facility] PATHOLOGY [facility] MCH 30.5 25.0 - 35.0 pg/cell [facility], CLINICAL PATHOLOGY [facility] MCHC 34.7 30.0 - 35.0 g/dL [facility], [facility] PATHOLOGY [facility] RDW, BLOOD 12.5 11.5 - 16.0 % [facility], [facility] PATHOLOGY [facility] PLATELETS, AUTOMATED COUNT 321 130 - 400 x1000/mcL [facility], [facility] BLOOD / Unknown 11/11/2024 1 2:30 PM PDT Narrative [facility], [facility] PATHOLOGY - [place] - 11/11/2024 11:36 PM PDT [facility] ACCN: [id number] Johnny Carpenter M.D. HEMATOLOGY [facility], [facility] [address] [place] [address] from Last 3 Months Care Teams Heat Engineering Teacher Relationship Specialty Start Date End Date Johnny Carpenter), [place] [address] PCP - General 12/09/22
--- OUTSIDE RECORDS SUMMARY | 2024-12-20 11:26 | XMS_ITS | Encounter Summary ---
Author Organization [facility] Address [address] [facility] [place] [address] Care Team Providers Care Director Of Dietary Name Role Phone Purnima Torres (Kisha) D.ONickie Primar y Care Provider Johnny Carpenter M.D., M.D. Primary Care Provi lauren Unavailable Reason for Visit * Reason Comments PERSON UNDER INVESTIGATION Encounter Details Date Type Department Care Team (Late st Contact Info) Description 08/28/2021 Orders Only [facility]ED [address] [place], [place] [id number] Waldo Anne), [place].D. [address] [place] [address] COVID-19 DISEASE, PERSON UNDER INVESTIGATION [...] Primary documented in this encounter Care Teams Director Of Dietary Relationship Specialty Start Date End Date Purnima Torres), D[address] [place] [phone] PCP - General 10/08/17 05/25/22 Johnny Carpenter M.D., [place] [address] PCP - General 12/09/22 documented as of this encounter
[2024-12-20 11:52] VITALS: BP 132/75; PULSE 84; RESP 16; TEMP 36.9; O2SAT 100
== END 2024-12-20 11:53 | disposition home or self-care (01) ==
PROVIDERS: Physician Assistant Medical; Emergency Provider Emergency Medicine
DX: R11.2 Nausea with vomiting, unspecified (principal); R51.9 Headache, unspecified; R19.7 Diarrhea, unspecified
CPT/HCPCS: 36415; 70450; 80053; 81001; 83690; 83735; 84702; 85025; 96361; 96374; 96375; 99284; J1200; J2765; J7120

== ENCOUNTER → 2024-12-20 09:20 | Outpatient (BNV) | payer BC, OTHER, SELFPAY | PROVIDERS: Emergency Provider Emergency Medicine; Visit Provider Radiology Diagnostic Radiology | DX: R51.9 Headache, unspecified (principal) | CPT/HCPCS: 70450 ==